=== PATIENT | male | born 1995 | race African-American/Black ===

== ENCOUNTER 2018-02-28 16:57 | Emergency (ER) | payer SELFPAY ==
[~2018-02-28] VITALS: Ht 182.9 cm; Wt 74.8 kg
[2018-02-28 16:59] VITALS: BP 146/77
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
[2018-02-28] MEDS ORDERED: IBUPROFEN 600 MG TABLET. PO ONE (18:00)
== END 2018-02-28 18:06 | disposition home or self-care (01) ==
LOC: ER 16:57
DX: S20.211A Contusion of right front wall of thorax, initial encounter (principal); W50.1XXA Accidental kick by another person, initial encounter; Y93.89 Activity, other specified; Y92.89 Other specified places as the place of occurrence of the external cause; Y99.8 Other external cause status
CPT/HCPCS: 71046; 99284